=== PATIENT | female | born 1975 | race Two or more races ===

== ENCOUNTER 2020-12-26 05:35 | Day surgery (SDC) | payer OTHER ==
[~2020-12-26 05:35] MED LIST: COZAAR25 MG PO; SYNTHROID150 MCG PO; TOPROL XL50 M1 PO
[2020-12-26] MEDS ORDERED: NEURONTIN300 MG PO (09:45)
[2020-12-26] MEDS ORDERED: COLACE100 MG PO (09:45)
[2020-12-26] MEDS ORDERED: PERCOCET 5-3251 EACH PO (09:45)
== END 2020-12-26 17:30 | disposition home or self-care (01) ==
LOC: CIR.AMB 05:35
PROVIDERS: ATTEND Surgery
DX: K60.1 Chronic anal fissure (principal); Z20.822 Contact with and (suspected) exposure to COVID-19